=== PATIENT | female | born 1955 | race African-American/Black ===

== ENCOUNTER 2018-03-17 15:55 | Emergency (ER) | payer BC ==
[2018-03-17 16:33] LABS: #Basophils 0.1 thou/uL (0.0-0.2); #Eosinphils 0.2 thou/uL (0.0-0.7); #Lymphocytes 2.3 thou/uL (1.20-3.40); #Monocytes 0.5 thou/uL (0.11-0.59); #Neutrophils 2.7 thou/uL (1.40-6.50); %Basophils 1.5 % (0.0-1.0); %Lymphocytes 40.8 % (21.0-51.0); %Monocytes 7.8 % (0.0-10.0); %Neutrophils 46.9 % (42.0-75.0); Hemoglobin 14.4 g/dL (12.0-16.0); Mean Corpuscular HGB CONC 33.6 g/dL (32.0-36.0); Mean Corpuscular Hemoglobin 30.6 pg (27.0-31.0); Mean Corpuscular Volume 91.1 fL (78.0-98.0); Mean Platelet Volume 7.8 fL (7.4-10.4); Platelet Count 178 thou/uL (130-400); RBC Distribution Width 12.8 % (11.5-14.5); Red Blood Cell (RBC) Count 4.71 mill/uL (4.20-5.40); White Blood Cell (WBC) Count 5.7 thou/uL (4.8-10.8)
[2018-03-17 16:43] LABS: ALT (SGPT) 28 U/L (8-55); AST (SGOT) 37 U/L (5-34); Albumin 4.3 g/dL (3.5-5.0); Alkaline Phosphatase 71 U/L (40-150); Anion Gap 14 mmol/L (10-20); BUN (Urea Nitrogen) 24 mg/dL (9.8-20.1); Bilirubin, Total 0.3 mg/dL (0.2-1.2); CK (CPK) 524 U/L (29-168); Calc. Creatinine Clearance 0 mL/min (70-130); Calcium 9.7 mg/dL (7.8-10.44); Carbon Dioxide 23 mmol/L (22-29); Chloride 105 mmol/L (98-107); Estimated GFR-MDRD 45; Globulin 3.1 g/dL (2.4-3.5); Glucose 153 mg/dL (70-105); Potassium 4.3 mmol/L (3.5-5.1); Protein, Total 7.4 g/dL (6.0-8.3); Sodium 138 mmol/L (136-145)
[2018-03-17 16:48] LABS: Troponin I Less than 0.010 ng/mL (< 0.028)
--- NOTE | 2018-03-17 16:53 | RAD ---
CHEST ONE VIEW: 03/17/18 HISTORY: Tachycardia. Hypertension. FINDINGS: Cardiac silhouette is magnified by projection. Pulmonary vasculature is unremarkable. Mild parenchyma l scarring at the right lateral apex. No lobar consolidation or evidence of pneumothorax. Cardiac mon itor leads overlie the chest. Postoperative changes right shoulder. IMPRESSION: No active cardiopulmonary abnormalities are demonstrated. POS: [facility]
== END 2018-03-17 17:47 | disposition home or self-care (01) ==
LOC: ERS 15:55
DX: R00.2 Palpitations (principal); I10 Essential (primary) hypertension; E78.00 Pure hypercholesterolemia, unspecified; Z87.891 Personal history of nicotine dependence
CPT/HCPCS: 71045; 80053; 82553; 84484; 85025; 93005; 94760

== ENCOUNTER 2020-09-17 11:54 | Outpatient (CLI) | payer BC | END 2020-09-17 11:55 | disposition home or self-care (01) | LOC: BICMRI 11:54 | PROVIDERS: ATTEND Family Medicine | DX: M24.9 Joint derangement, unspecified (principal); M75.102 Unspecified rotator cuff tear or rupture of left shoulder, not specified as traumatic; M25.412 Effusion, left shoulder ==